=== PATIENT | male | born 1990 | race Caucasian/White ===

== ENCOUNTER 2017-05-22 22:27 | Emergency (ER) | payer OTHER ==
[~2017-05-22] VITALS: Ht 177.8 cm; Wt 74.8 kg
--- NOTE | 2017-05-22 22:27 | NUR ---
PT BIB [facility], PREBOOK. TAKEN TO OF
[2017-05-22 22:30] VITALS: BP 149/91
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
--- NOTE | 2017-05-22 23:00 | NUR ---
Patient being evaluated by at bedside.
[2017-05-22 23:07] VITALS: BP 149/91
--- NOTE | 2017-05-22 23:08 | NUR ---
Patient discharged with v/s stable. Written and verbal after care instructions given and explained. Patient verbalized understanding. Ambulatory with steady gait. All questions addressed prior to discharge. Advised to follow up with PMD.
--- NOTE | 2017-05-22 23:08 | NUR ---
PATIENT BIB [facility] [facility]. PATIENT EXAMINED BY DR. RHODES. PATIENT MEDICALLY CLEARED AND RELEASED IN CUSTODY IN STABLE CONDITION. ORIGINAL PRE-BOOK FORM GIVEN TO OFFICER RICHAR.
== END 2017-05-22 23:08 ==
LOC: MED 22:27
DX: Z02.89 Encounter for other administrative examinations (principal); V47.5XXA Car driver injured in collision with fixed or stationary object in traffic accident, initial encounter; Y93.89 Activity, other specified; Y92.488 Other paved roadways as the place of occurrence of the external cause; Y99.8 Other external cause status
CPT/HCPCS: 99283